=== PATIENT | male | born 1980 | race African-American/Black ===

== ENCOUNTER 2023-02-22 12:43 | Inpatient (IN) | payer OTHER ==
[2023-02-22 14:17] VITALS: BMI 33.3
[2023-02-22] MEDS ORDERED: guaiFENesin 600 MG TABLET.ER (FP) PO PRN (14:51)
[2023-02-22] MEDS ORDERED: BENZOCAINE/MENTHOL (CHLORASEPTIC ) LOZENGE MM PRN (14:51)
[2023-02-22] MEDS ORDERED: AMMONIUM LACTATE 12% LOTION 225 GM BOTTLE TP PRN (14:51)
[2023-02-22] MEDS ORDERED: MAG HYDROX/AL HYDROX/SIMETH 30 ML UNIT-DOSE CUP PO PRN (14:51)
[2023-02-22] MEDS ORDERED: POLYETHYLENE GLYCOL (HEALTHYLAX) 3350 17 GM PACKET PO PRN (14:51)
[2023-02-22] MEDS ORDERED: IBUPROFEN 400 MG TABLET (FP) PO PRN (14:51)
[2023-02-22] MEDS ORDERED: LOPERAMIDE HCL 2 MG CAPSULE PO PRN (14:51)
[2023-02-22] MEDS ORDERED: COLLOIDAL OATMEAL 1 BAR EACH TP PRN (14:51)
[2023-02-22] MEDS ORDERED: IBUPROFEN 600 MG TABLET (FP) PO PRN (14:51)
[2023-02-22] MEDS ORDERED: BENZONATATE 200 MG CAPSULE PO PRN (14:51)
[2023-02-22] MEDS ORDERED: MAGNESIUM HYDROX 2400MG/30ML ORAL SUSPENSION 30 ML CUP PO PRN (14:51)
[2023-02-22] MEDS ORDERED: NALOXONE HCL 0.4 MG/ML VIAL IM PRN (14:51)
[2023-02-22] MEDS ORDERED: NALOXONE HCL (KLOXXADO) 8 MG SPRAY NS PRN (14:51)
[2023-02-22] MEDS ORDERED: ACETAMINOPHEN 325 MG TABLET (FP) PO PRN (14:51)
[2023-02-22] MEDS ORDERED: INSULIN (NOVOLOG) ASPART 100 UNITS/ML 10ML VIAL SQ ONE (16:24)
[2023-02-22] MEDS: INSULIN SLIDING SCALE (NOVOLOG) 1 VIAL SQ SCH (16:33)
[2023-02-22] MEDS ORDERED: glipiZIDE 5 MG TABLET (FP) ONE (17:08)
[2023-02-22] MEDS: metFORMIN HCL 500 MG TABLET (FP) PO SCH (17:13)
[2023-02-22] MEDS: glipiZIDE 10 MG TABLET (FP) PO SCH (17:14)
[2023-02-22] MEDS: PRENATAL VITAMINS W/ FOLIC ACID TABLET (FP) PO SCH (17:25)
[2023-02-22] MEDS: THIAMINE HCL 100 MG TABLET (FP) PO SCH (21:31)
[2023-02-22] MEDS: MELATONIN 5 MG TABLETS PO SCH (21:31)
[2023-02-22] MEDS: INSULIN (LEVEMIR) 100 UNITS/ML UNITS SQ SCH (21:36)
[2023-02-23] MEDS ORDERED: glipiZIDE 5 MG TABLET (FP) ONE ×2 (04:08→16:40)
[2023-02-23] MEDS: metFORMIN HCL 500 MG TABLET (FP) PO SCH ×2 (07:15→16:44)
[2023-02-23] MEDS: glipiZIDE 10 MG TABLET (FP) PO SCH ×2 (07:16→16:43)
[2023-02-23] MEDS: INSULIN SLIDING SCALE (NOVOLOG) 1 VIAL SQ SCH ×3 (07:17→16:44)
[2023-02-23] MEDS: PRENATAL VITAMINS W/ FOLIC ACID TABLET (FP) PO SCH (09:47)
[2023-02-23 11:10] LABS: HEMATOCRIT 38.9 % (35.4-49); MCH 27.1 pg (25.7-33.7); MCHC 33.3 g/dl (32.0-35.9); MEAN CELL VOLUME 81.5 fl (80-96); MEAN PLT VOLUME 7.4 fl (7.5-11.1); PLATELET COUNT 328 10^3/uL (134-434); RBC 4.77 M/mm3 (4.00-5.60); RDW 13.6 % (11.9-15.9); WHITE BLOOD COUNT 5.7 K/mm3 (4.0-10.0)
[2023-02-23 11:17] LABS: POTASSIUM 3.6 mmol/L (3.5-5.1)
[2023-02-23 11:20] LABS: CALCIUM 8.7 mg/dL (8.5-10.1)
[2023-02-23 11:24] LABS: CREATININE 0.9 mg/dL (0.55-1.3)
[2023-02-23 11:26] LABS: BILIRUBIN,TOTAL 0.4 mg/dL (0.2-1); TOT PROT 5.7 g/dl (6.4-8.2)
[2023-02-23] MEDS ORDERED: INSULIN (NOVOLOG) ASPART 100 UNITS/ML 10ML VIAL ONE (12:02)
[2023-02-23] MEDS: INSULIN (LEVEMIR) 100 UNITS/ML UNITS SQ SCH (21:35)
[2023-02-23] MEDS: THIAMINE HCL 100 MG TABLET (FP) PO SCH (21:36)
[2023-02-23] MEDS: MELATONIN 5 MG TABLETS PO SCH (21:36)
[2023-02-24] MEDS ORDERED: glipiZIDE 5 MG TABLET (FP) ONE ×2 (03:51→17:06)
[2023-02-24] MEDS: glipiZIDE 10 MG TABLET (FP) PO SCH ×2 (06:25→17:09)
[2023-02-24] MEDS: metFORMIN HCL 500 MG TABLET (FP) PO SCH ×2 (06:25→17:07)
[2023-02-24] MEDS: INSULIN SLIDING SCALE (NOVOLOG) 1 VIAL SQ SCH ×3 (08:29→17:09)
[2023-02-24] MEDS: PRENATAL VITAMINS W/ FOLIC ACID TABLET (FP) PO SCH (10:29)
[2023-02-24 21:39] LABS: URINE APPEARANCE CLEAR; URINE BILIRUBIN NEGATIVE (NEGATIVE); URINE COLOR YELLOW; URINE GLUCOSE (UA) 3+ (NEGATIVE); URINE KETONE NEGATIVE (NEGATIVE); URINE LEUK ESTERASE NEGATIVE (NEGATIVE); URINE NITRITE NEGATIVE (NEGATIVE); URINE PROTEIN NEGATIVE (NEGATIVE); URINE UROBILINOGEN 0.2 mg/dL (0.2-1.0)
[2023-02-24] MEDS: THIAMINE HCL 100 MG TABLET (FP) PO SCH (22:11)
[2023-02-24] MEDS: MELATONIN 5 MG TABLETS PO SCH (22:11)
[2023-02-24] MEDS: INSULIN (LEVEMIR) 100 UNITS/ML UNITS SQ SCH (22:14)
[2023-02-25] MEDS: metFORMIN HCL 500 MG TABLET (FP) PO SCH ×2 (06:51→17:05)
[2023-02-25] MEDS ORDERED: glipiZIDE 5 MG TABLET (FP) ONE (08:34)
[2023-02-25] MEDS: INSULIN SLIDING SCALE (NOVOLOG) 1 VIAL SQ SCH ×3 (08:39→17:06)
[2023-02-25] MEDS: glipiZIDE 10 MG TABLET (FP) PO SCH ×2 (08:39→17:05)
[2023-02-25] MEDS: PRENATAL VITAMINS W/ FOLIC ACID TABLET (FP) PO SCH (09:59)
[2023-02-25] MEDS: MELATONIN 5 MG TABLETS PO SCH (21:43)
[2023-02-25] MEDS: THIAMINE HCL 100 MG TABLET (FP) PO SCH (21:43)
[2023-02-25] MEDS: INSULIN (LEVEMIR) 100 UNITS/ML UNITS SQ SCH (21:44)
[2023-02-26] MEDS: glipiZIDE 10 MG TABLET (FP) PO SCH ×2 (06:48→17:12)
[2023-02-26] MEDS: metFORMIN HCL 500 MG TABLET (FP) PO SCH ×2 (06:48→17:09)
[2023-02-26] MEDS: INSULIN SLIDING SCALE (NOVOLOG) 1 VIAL SQ SCH ×3 (08:09→17:09)
[2023-02-26] MEDS: PRENATAL VITAMINS W/ FOLIC ACID TABLET (FP) PO SCH (10:17)
[2023-02-26] MEDS ORDERED: glipiZIDE 5 MG TABLET (FP) ONE (16:56)
[2023-02-26] MEDS ORDERED: INSULIN (NOVOLOG) ASPART 100 UNITS/ML 10ML VIAL ONE (16:56)
[2023-02-26] MEDS: THIAMINE HCL 100 MG TABLET (FP) PO SCH (21:25)
[2023-02-26] MEDS: MELATONIN 5 MG TABLETS PO SCH (21:25)
[2023-02-26] MEDS: INSULIN (LEVEMIR) 100 UNITS/ML UNITS SQ SCH (21:26)
[2023-02-27] MEDS ORDERED: glipiZIDE 5 MG TABLET (FP) ONE ×2 (05:29→16:23)
[2023-02-27] MEDS: metFORMIN HCL 500 MG TABLET (FP) PO SCH ×2 (07:05→16:33)
[2023-02-27] MEDS: glipiZIDE 10 MG TABLET (FP) PO SCH ×2 (07:06→16:33)
[2023-02-27] MEDS: INSULIN SLIDING SCALE (NOVOLOG) 1 VIAL SQ SCH ×3 (07:11→17:05)
[2023-02-27] MEDS ORDERED: INSULIN (NOVOLOG) ASPART 100 UNITS/ML 10ML VIAL ONE ×2 (07:38→11:55)
[2023-02-27] MEDS: PRENATAL VITAMINS W/ FOLIC ACID TABLET (FP) PO SCH (10:07)
[2023-02-27] MEDS: THIAMINE HCL 100 MG TABLET (FP) PO SCH (21:31)
[2023-02-27] MEDS: MELATONIN 5 MG TABLETS PO SCH (21:31)
[2023-02-27] MEDS: INSULIN (LEVEMIR) 100 UNITS/ML UNITS SQ SCH (21:31)
[2023-02-28] MEDS ORDERED: glipiZIDE 5 MG TABLET (FP) ONE ×2 (04:35→16:38)
[2023-02-28] MEDS: metFORMIN HCL 500 MG TABLET (FP) PO SCH ×2 (06:41→16:59)
[2023-02-28] MEDS: glipiZIDE 10 MG TABLET (FP) PO SCH ×2 (06:42→16:59)
[2023-02-28] MEDS: INSULIN SLIDING SCALE (NOVOLOG) 1 VIAL SQ SCH ×3 (06:42→16:58)
[2023-02-28] MEDS: PRENATAL VITAMINS W/ FOLIC ACID TABLET (FP) PO SCH (10:14)
[2023-02-28] MEDS: LISINOPRIL 10 MG TABLET PO SCH (11:04)
[2023-02-28] MEDS ORDERED: INSULIN (LEVEMIR) 100 UNITS/ML UNITS SQ ONE (20:13)
[2023-02-28] MEDS: MELATONIN 5 MG TABLETS PO SCH (21:47)
[2023-02-28] MEDS: THIAMINE HCL 100 MG TABLET (FP) PO SCH (21:47)
[2023-02-28] MEDS: INSULIN (LEVEMIR) 100 UNITS/ML UNITS SQ SCH (21:48)
[2023-03-01] MEDS ORDERED: glipiZIDE 5 MG TABLET (FP) ONE ×2 (03:49→16:32)
[2023-03-01] MEDS: metFORMIN HCL 500 MG TABLET (FP) PO SCH ×2 (06:52→16:57)
[2023-03-01] MEDS: glipiZIDE 10 MG TABLET (FP) PO SCH ×2 (06:52→16:57)
[2023-03-01] MEDS: INSULIN SLIDING SCALE (NOVOLOG) 1 VIAL SQ SCH ×3 (07:57→16:57)
[2023-03-01] MEDS: PRENATAL VITAMINS W/ FOLIC ACID TABLET (FP) PO SCH (09:22)
[2023-03-01] MEDS: LISINOPRIL 10 MG TABLET PO SCH (09:23)
[2023-03-01] MEDS ORDERED: INSULIN (NOVOLOG) ASPART 100 UNITS/ML 10ML VIAL ONE (12:06)
[2023-03-01] MEDS: MELATONIN 5 MG TABLETS PO SCH (21:21)
[2023-03-01] MEDS: THIAMINE HCL 100 MG TABLET (FP) PO SCH (21:21)
[2023-03-01] MEDS: INSULIN (LEVEMIR) 100 UNITS/ML UNITS SQ SCH (21:24)
[2023-03-02] MEDS ORDERED: glipiZIDE 5 MG TABLET (FP) ONE ×2 (03:08→16:36)
[2023-03-02] MEDS: metFORMIN HCL 500 MG TABLET (FP) PO SCH ×2 (06:59→16:47)
[2023-03-02] MEDS: glipiZIDE 10 MG TABLET (FP) PO SCH ×2 (06:59→16:48)
[2023-03-02] MEDS: INSULIN SLIDING SCALE (NOVOLOG) 1 VIAL SQ SCH ×3 (07:00→16:48)
[2023-03-02] MEDS: LISINOPRIL 10 MG TABLET PO SCH (10:05)
[2023-03-02] MEDS: PRENATAL VITAMINS W/ FOLIC ACID TABLET (FP) PO SCH (10:06)
[2023-03-02] MEDS: THIAMINE HCL 100 MG TABLET (FP) PO SCH (21:14)
[2023-03-02] MEDS: MELATONIN 5 MG TABLETS PO SCH (21:14)
[2023-03-02] MEDS: INSULIN (LEVEMIR) 100 UNITS/ML UNITS SQ SCH (21:15)
[2023-03-03] MEDS ORDERED: INSULIN (NOVOLOG) ASPART 100 UNITS/ML 10ML VIAL ONE (05:14)
[2023-03-03] MEDS ORDERED: glipiZIDE 5 MG TABLET (FP) ONE (05:15)
[2023-03-03] MEDS: INSULIN SLIDING SCALE (NOVOLOG) 1 VIAL SQ SCH ×3 (07:47→16:49)
[2023-03-03] MEDS: metFORMIN HCL 500 MG TABLET (FP) PO SCH ×2 (07:47→16:48)
[2023-03-03] MEDS: glipiZIDE 10 MG TABLET (FP) PO SCH ×2 (07:50→16:49)
[2023-03-03] MEDS: LISINOPRIL 10 MG TABLET PO SCH (09:49)
[2023-03-03] MEDS: PRENATAL VITAMINS W/ FOLIC ACID TABLET (FP) PO SCH (09:49)
[2023-03-03] MEDS: INSULIN (LEVEMIR) 100 UNITS/ML UNITS SQ SCH (21:13)
[2023-03-03] MEDS: THIAMINE HCL 100 MG TABLET (FP) PO SCH (21:13)
[2023-03-03] MEDS: MELATONIN 5 MG TABLETS PO SCH (21:13)
[2023-03-04] MEDS: metFORMIN HCL 500 MG TABLET (FP) PO SCH ×2 (07:12→16:57)
[2023-03-04] MEDS: glipiZIDE 10 MG TABLET (FP) PO SCH ×2 (07:13→16:57)
[2023-03-04] MEDS: INSULIN SLIDING SCALE (NOVOLOG) 1 VIAL SQ SCH ×3 (07:14→17:00)
[2023-03-04] MEDS: LISINOPRIL 10 MG TABLET PO SCH (09:48)
[2023-03-04] MEDS: PRENATAL VITAMINS W/ FOLIC ACID TABLET (FP) PO SCH (09:48)
[2023-03-04] MEDS: MELATONIN 5 MG TABLETS PO SCH (21:18)
[2023-03-04] MEDS: THIAMINE HCL 100 MG TABLET (FP) PO SCH (21:18)
[2023-03-04] MEDS: INSULIN (LEVEMIR) 100 UNITS/ML UNITS SQ SCH (21:19)
[2023-03-05] MEDS: metFORMIN HCL 500 MG TABLET (FP) PO SCH ×2 (06:32→16:54)
[2023-03-05] MEDS: glipiZIDE 10 MG TABLET (FP) PO SCH ×2 (06:32→16:54)
[2023-03-05] MEDS: INSULIN SLIDING SCALE (NOVOLOG) 1 VIAL SQ SCH ×3 (08:34→16:58)
[2023-03-05] MEDS: PRENATAL VITAMINS W/ FOLIC ACID TABLET (FP) PO SCH (09:59)
[2023-03-05] MEDS: LISINOPRIL 10 MG TABLET PO SCH (10:00)
[2023-03-05 15:28] LABS: HIV INTERPRETATION NEGATIVE (NEGATIVE)
[2023-03-05] MEDS ORDERED: glipiZIDE 5 MG TABLET (FP) ONE (16:54)
[2023-03-05] MEDS ORDERED: INSULIN (NOVOLOG) ASPART 100 UNITS/ML 10ML VIAL ONE (16:56)
[2023-03-05] MEDS: INSULIN (LEVEMIR) 100 UNITS/ML UNITS SQ SCH (21:19)
[2023-03-05] MEDS: THIAMINE HCL 100 MG TABLET (FP) PO SCH (21:19)
[2023-03-05] MEDS: MELATONIN 5 MG TABLETS PO SCH (21:19)
[2023-03-06] MEDS ORDERED: glipiZIDE 5 MG TABLET (FP) ONE ×2 (05:43→16:41)
[2023-03-06] MEDS: metFORMIN HCL 500 MG TABLET (FP) PO SCH ×2 (06:59→16:41)
[2023-03-06] MEDS: glipiZIDE 10 MG TABLET (FP) PO SCH ×2 (07:00→16:42)
[2023-03-06] MEDS: INSULIN SLIDING SCALE (NOVOLOG) 1 VIAL SQ SCH ×3 (07:00→16:42)
[2023-03-06] MEDS: LISINOPRIL 10 MG TABLET PO SCH (09:54)
[2023-03-06] MEDS: PRENATAL VITAMINS W/ FOLIC ACID TABLET (FP) PO SCH (09:54)
[2023-03-06] MEDS ORDERED: INSULIN (NOVOLOG) ASPART 100 UNITS/ML 10ML VIAL ONE (16:40)
[2023-03-06] MEDS: MELATONIN 5 MG TABLETS PO SCH (21:17)
[2023-03-06] MEDS: INSULIN (LEVEMIR) 100 UNITS/ML UNITS SQ SCH (21:17)
[2023-03-06] MEDS: THIAMINE HCL 100 MG TABLET (FP) PO SCH (21:17)
[2023-03-07] MEDS ORDERED: glipiZIDE 5 MG TABLET (FP) ONE ×2 (03:35→16:30)
[2023-03-07] MEDS: metFORMIN HCL 500 MG TABLET (FP) PO SCH ×2 (06:51→16:49)
[2023-03-07] MEDS: glipiZIDE 10 MG TABLET (FP) PO SCH ×2 (06:51→16:48)
[2023-03-07] MEDS: INSULIN SLIDING SCALE (NOVOLOG) 1 VIAL SQ SCH ×3 (06:52→16:49)
[2023-03-07] MEDS: PRENATAL VITAMINS W/ FOLIC ACID TABLET (FP) PO SCH (10:01)
[2023-03-07] MEDS: LISINOPRIL 10 MG TABLET PO SCH (10:02)
[2023-03-07] MEDS ORDERED: INSULIN (NOVOLOG) ASPART 100 UNITS/ML 10ML VIAL ONE (11:08)
[2023-03-07] MEDS: hydrOXYzine PAMOATE 25 MG CAPSULE (FP) PO PRN (15:54)
[2023-03-07] MEDS: MELATONIN 5 MG TABLETS PO SCH (21:16)
[2023-03-07] MEDS: INSULIN (LEVEMIR) 100 UNITS/ML UNITS SQ SCH (21:16)
[2023-03-07] MEDS: THIAMINE HCL 100 MG TABLET (FP) PO SCH (21:16)
[2023-03-08] MEDS: glipiZIDE 10 MG TABLET (FP) PO SCH ×2 (06:55→16:37)
[2023-03-08] MEDS: hydrOXYzine PAMOATE 25 MG CAPSULE (FP) PO PRN (06:55)
[2023-03-08] MEDS: metFORMIN HCL 500 MG TABLET (FP) PO SCH ×2 (06:55→16:37)
[2023-03-08] MEDS: INSULIN SLIDING SCALE (NOVOLOG) 1 VIAL SQ SCH ×3 (08:23→16:51)
[2023-03-08] MEDS: PRENATAL VITAMINS W/ FOLIC ACID TABLET (FP) PO SCH (10:15)
[2023-03-08] MEDS: HYDROCHLOROTHIAZIDE 12.5 MG CAPSULE (FP) PO SCH (10:16)
[2023-03-08] MEDS: LISINOPRIL 20 MG TABLET PO SCH (10:16)
[2023-03-08] MEDS ORDERED: INSULIN (NOVOLOG) ASPART 100 UNITS/ML 10ML VIAL ONE ×2 (11:00→16:21)
[2023-03-08] MEDS ORDERED: glipiZIDE 5 MG TABLET (FP) ONE (16:22)
[2023-03-08] MEDS: INSULIN (LEVEMIR) 100 UNITS/ML UNITS SQ SCH (21:01)
[2023-03-08] MEDS: THIAMINE HCL 100 MG TABLET (FP) PO SCH (21:01)
[2023-03-08] MEDS: MELATONIN 5 MG TABLETS PO SCH (21:01)
[2023-03-09] MEDS ORDERED: glipiZIDE 5 MG TABLET (FP) ONE ×2 (03:59→16:42)
[2023-03-09] MEDS ORDERED: INSULIN (NOVOLOG) ASPART 100 UNITS/ML 10ML VIAL ONE ×2 (06:52→10:59)
[2023-03-09] MEDS: metFORMIN HCL 500 MG TABLET (FP) PO SCH ×2 (06:53→16:42)
[2023-03-09] MEDS: INSULIN SLIDING SCALE (NOVOLOG) 1 VIAL SQ SCH ×3 (06:53→16:45)
[2023-03-09] MEDS: glipiZIDE 10 MG TABLET (FP) PO SCH ×2 (06:54→16:43)
[2023-03-09] MEDS: HYDROCHLOROTHIAZIDE 12.5 MG CAPSULE (FP) PO SCH (09:55)
[2023-03-09] MEDS: PRENATAL VITAMINS W/ FOLIC ACID TABLET (FP) PO SCH (09:55)
[2023-03-09] MEDS: LISINOPRIL 20 MG TABLET PO SCH (09:55)
[2023-03-09] MEDS: MELATONIN 5 MG TABLETS PO SCH (21:27)
[2023-03-09] MEDS: THIAMINE HCL 100 MG TABLET (FP) PO SCH (21:27)
[2023-03-09] MEDS: INSULIN (LEVEMIR) 100 UNITS/ML UNITS SQ SCH (21:31)
[2023-03-10] MEDS ORDERED: glipiZIDE 5 MG TABLET (FP) ONE (05:57)
[2023-03-10] MEDS: metFORMIN HCL 500 MG TABLET (FP) PO SCH ×2 (06:54→16:43)
[2023-03-10] MEDS: glipiZIDE 10 MG TABLET (FP) PO SCH ×2 (06:54→16:44)
[2023-03-10] MEDS: INSULIN SLIDING SCALE (NOVOLOG) 1 VIAL SQ SCH ×3 (06:55→16:45)
[2023-03-10] MEDS ORDERED: INSULIN (NOVOLOG) ASPART 100 UNITS/ML 10ML VIAL ONE ×3 (06:58→16:43)
[2023-03-10] MEDS: LISINOPRIL 20 MG TABLET PO SCH (10:03)
[2023-03-10] MEDS: PRENATAL VITAMINS W/ FOLIC ACID TABLET (FP) PO SCH (10:03)
[2023-03-10] MEDS: HYDROCHLOROTHIAZIDE 12.5 MG CAPSULE (FP) PO SCH (10:03)
[2023-03-10] MEDS: MELATONIN 5 MG TABLETS PO SCH (21:25)
[2023-03-10] MEDS: THIAMINE HCL 100 MG TABLET (FP) PO SCH (21:25)
[2023-03-10] MEDS: INSULIN (LEVEMIR) 100 UNITS/ML UNITS SQ SCH (21:26)
[2023-03-11] MEDS ORDERED: INSULIN (NOVOLOG) ASPART 100 UNITS/ML 10ML VIAL ONE (02:55)
[2023-03-11] MEDS: glipiZIDE 10 MG TABLET (FP) PO SCH ×2 (06:51→16:46)
[2023-03-11] MEDS: metFORMIN HCL 500 MG TABLET (FP) PO SCH ×2 (06:51→16:46)
[2023-03-11] MEDS: INSULIN SLIDING SCALE (NOVOLOG) 1 VIAL SQ SCH ×3 (08:25→16:44)
[2023-03-11] MEDS: HYDROCHLOROTHIAZIDE 12.5 MG CAPSULE (FP) PO SCH (10:03)
[2023-03-11] MEDS: LISINOPRIL 20 MG TABLET PO SCH (10:03)
[2023-03-11] MEDS: PRENATAL VITAMINS W/ FOLIC ACID TABLET (FP) PO SCH (10:03)
[2023-03-11] MEDS: MELATONIN 5 MG TABLETS PO SCH (21:53)
[2023-03-11] MEDS: THIAMINE HCL 100 MG TABLET (FP) PO SCH (21:53)
[2023-03-11] MEDS: INSULIN (LEVEMIR) 100 UNITS/ML UNITS SQ SCH (21:54)
[2023-03-12] MEDS: metFORMIN HCL 500 MG TABLET (FP) PO SCH ×2 (06:42→17:21)
[2023-03-12] MEDS: glipiZIDE 10 MG TABLET (FP) PO SCH ×2 (06:42→17:22)
[2023-03-12] MEDS: INSULIN SLIDING SCALE (NOVOLOG) 1 VIAL SQ SCH ×3 (06:44→16:58)
[2023-03-12] MEDS ORDERED: INSULIN (NOVOLOG) ASPART 100 UNITS/ML 10ML VIAL ONE ×2 (06:44→08:05)
[2023-03-12] MEDS: PRENATAL VITAMINS W/ FOLIC ACID TABLET (FP) PO SCH (09:56)
[2023-03-12] MEDS: HYDROCHLOROTHIAZIDE 12.5 MG CAPSULE (FP) PO SCH (09:56)
[2023-03-12] MEDS: LISINOPRIL 20 MG TABLET PO SCH (09:57)
[2023-03-12] MEDS ORDERED: glipiZIDE 5 MG TABLET (FP) ONE (17:20)
[2023-03-12] MEDS: THIAMINE HCL 100 MG TABLET (FP) PO SCH (21:37)
[2023-03-12] MEDS: MELATONIN 5 MG TABLETS PO SCH (21:37)
[2023-03-12] MEDS: INSULIN (LEVEMIR) 100 UNITS/ML UNITS SQ SCH (21:42)
[2023-03-13] MEDS ORDERED: glipiZIDE 5 MG TABLET (FP) ONE ×2 (03:39→16:22)
[2023-03-13] MEDS: metFORMIN HCL 500 MG TABLET (FP) PO SCH ×2 (06:52→16:44)
[2023-03-13] MEDS: glipiZIDE 10 MG TABLET (FP) PO SCH ×2 (06:53→16:45)
[2023-03-13] MEDS: INSULIN SLIDING SCALE (NOVOLOG) 1 VIAL SQ SCH ×3 (06:55→16:45)
[2023-03-13] MEDS ORDERED: INSULIN (NOVOLOG) ASPART 100 UNITS/ML 10ML VIAL ONE ×2 (06:55→11:03)
[2023-03-13] MEDS: HYDROCHLOROTHIAZIDE 12.5 MG CAPSULE (FP) PO SCH (09:53)
[2023-03-13] MEDS: PRENATAL VITAMINS W/ FOLIC ACID TABLET (FP) PO SCH (09:53)
[2023-03-13] MEDS: LISINOPRIL 20 MG TABLET PO SCH (09:53)
[2023-03-13] MEDS: MELATONIN 5 MG TABLETS PO SCH (21:21)
[2023-03-13] MEDS: INSULIN (LEVEMIR) 100 UNITS/ML UNITS SQ SCH (21:21)
[2023-03-13] MEDS: THIAMINE HCL 100 MG TABLET (FP) PO SCH (21:22)
[2023-03-14] MEDS: glipiZIDE 10 MG TABLET (FP) PO SCH ×2 (06:38→16:31)
[2023-03-14] MEDS: metFORMIN HCL 500 MG TABLET (FP) PO SCH ×2 (06:38→16:31)
[2023-03-14] MEDS: INSULIN SLIDING SCALE (NOVOLOG) 1 VIAL SQ SCH ×3 (07:27→16:33)
[2023-03-14] MEDS: HYDROCHLOROTHIAZIDE 12.5 MG CAPSULE (FP) PO SCH (09:43)
[2023-03-14] MEDS: PRENATAL VITAMINS W/ FOLIC ACID TABLET (FP) PO SCH (09:43)
[2023-03-14] MEDS: LISINOPRIL 20 MG TABLET PO SCH (09:43)
[2023-03-14] MEDS: MELATONIN 5 MG TABLETS PO SCH (21:20)
[2023-03-14] MEDS: THIAMINE HCL 100 MG TABLET (FP) PO SCH (21:20)
[2023-03-14] MEDS: INSULIN (LEVEMIR) 100 UNITS/ML UNITS SQ SCH (21:21)
[2023-03-15] MEDS ORDERED: glipiZIDE 5 MG TABLET (FP) ONE ×2 (04:21→16:25)
[2023-03-15] MEDS: metFORMIN HCL 500 MG TABLET (FP) PO SCH ×2 (06:55→16:27)
[2023-03-15] MEDS: glipiZIDE 10 MG TABLET (FP) PO SCH ×2 (06:55→16:28)
[2023-03-15] MEDS: INSULIN SLIDING SCALE (NOVOLOG) 1 VIAL SQ SCH ×3 (06:56→16:28)
[2023-03-15] MEDS: LISINOPRIL 20 MG TABLET PO SCH (10:18)
[2023-03-15] MEDS: PRENATAL VITAMINS W/ FOLIC ACID TABLET (FP) PO SCH (10:18)
[2023-03-15] MEDS: HYDROCHLOROTHIAZIDE 12.5 MG CAPSULE (FP) PO SCH (10:18)
[2023-03-15] MEDS: THIAMINE HCL 100 MG TABLET (FP) PO SCH (21:25)
[2023-03-15] MEDS: MELATONIN 5 MG TABLETS PO SCH (21:25)
[2023-03-15] MEDS: INSULIN (LEVEMIR) 100 UNITS/ML UNITS SQ SCH (21:25)
[2023-03-16] MEDS ORDERED: glipiZIDE 5 MG TABLET (FP) ONE ×2 (03:44→16:39)
[2023-03-16] MEDS: metFORMIN HCL 500 MG TABLET (FP) PO SCH ×2 (06:57→16:44)
[2023-03-16] MEDS: glipiZIDE 10 MG TABLET (FP) PO SCH ×2 (06:57→16:45)
[2023-03-16] MEDS: INSULIN SLIDING SCALE (NOVOLOG) 1 VIAL SQ SCH ×3 (06:58→16:47)
[2023-03-16] MEDS ORDERED: INSULIN (NOVOLOG) ASPART 100 UNITS/ML 10ML VIAL ONE (07:25)
[2023-03-16] MEDS: PRENATAL VITAMINS W/ FOLIC ACID TABLET (FP) PO SCH (10:11)
[2023-03-16] MEDS: HYDROCHLOROTHIAZIDE 12.5 MG CAPSULE (FP) PO SCH (10:11)
[2023-03-16] MEDS: LISINOPRIL 20 MG TABLET PO SCH (10:11)
[2023-03-16] MEDS: INSULIN (LEVEMIR) 100 UNITS/ML UNITS SQ SCH (21:09)
[2023-03-16] MEDS: MELATONIN 5 MG TABLETS PO SCH (21:10)
[2023-03-16] MEDS: THIAMINE HCL 100 MG TABLET (FP) PO SCH (21:10)
[2023-03-17] MEDS ORDERED: glipiZIDE 5 MG TABLET (FP) ONE (03:35)
[2023-03-17] MEDS: INSULIN SLIDING SCALE (NOVOLOG) 1 VIAL SQ SCH ×3 (06:52→16:29)
[2023-03-17] MEDS: metFORMIN HCL 500 MG TABLET (FP) PO SCH ×2 (06:53→17:00)
[2023-03-17] MEDS: glipiZIDE 10 MG TABLET (FP) PO SCH ×2 (06:53→17:00)
[2023-03-17] MEDS: PRENATAL VITAMINS W/ FOLIC ACID TABLET (FP) PO SCH (09:54)
[2023-03-17] MEDS: HYDROCHLOROTHIAZIDE 12.5 MG CAPSULE (FP) PO SCH (09:55)
[2023-03-17] MEDS: LISINOPRIL 20 MG TABLET PO SCH (09:55)
[2023-03-17] MEDS: MELATONIN 5 MG TABLETS PO SCH (21:43)
[2023-03-17] MEDS: INSULIN (LEVEMIR) 100 UNITS/ML UNITS SQ SCH (21:43)
[2023-03-17] MEDS: THIAMINE HCL 100 MG TABLET (FP) PO SCH (21:43)
[2023-03-18] MEDS: metFORMIN HCL 500 MG TABLET (FP) PO SCH ×2 (06:41→16:29)
[2023-03-18] MEDS: INSULIN SLIDING SCALE (NOVOLOG) 1 VIAL SQ SCH ×3 (06:41→16:26)
[2023-03-18] MEDS: glipiZIDE 10 MG TABLET (FP) PO SCH ×2 (06:42→16:29)
[2023-03-18] MEDS: HYDROCHLOROTHIAZIDE 12.5 MG CAPSULE (FP) PO SCH (09:42)
[2023-03-18] MEDS: PRENATAL VITAMINS W/ FOLIC ACID TABLET (FP) PO SCH (09:42)
[2023-03-18] MEDS: LISINOPRIL 20 MG TABLET PO SCH (09:43)
[2023-03-18] MEDS: THIAMINE HCL 100 MG TABLET (FP) PO SCH (21:16)
[2023-03-18] MEDS: MELATONIN 5 MG TABLETS PO SCH (21:16)
[2023-03-18] MEDS: INSULIN (LEVEMIR) 100 UNITS/ML UNITS SQ SCH (21:16)
[2023-03-19] MEDS: metFORMIN HCL 500 MG TABLET (FP) PO SCH ×2 (07:00→17:05)
[2023-03-19] MEDS: INSULIN SLIDING SCALE (NOVOLOG) 1 VIAL SQ SCH ×3 (07:00→17:08)
[2023-03-19] MEDS: glipiZIDE 10 MG TABLET (FP) PO SCH ×2 (07:00→17:11)
[2023-03-19] MEDS: PRENATAL VITAMINS W/ FOLIC ACID TABLET (FP) PO SCH (09:38)
[2023-03-19] MEDS: HYDROCHLOROTHIAZIDE 12.5 MG CAPSULE (FP) PO SCH (09:38)
[2023-03-19] MEDS: LISINOPRIL 20 MG TABLET PO SCH (09:38)
[2023-03-19] MEDS ORDERED: glipiZIDE 5 MG TABLET (FP) ONE (17:04)
[2023-03-19] MEDS ORDERED: INSULIN (NOVOLOG) ASPART 100 UNITS/ML 10ML VIAL ONE (17:04)
[2023-03-19] MEDS: MELATONIN 5 MG TABLETS PO SCH (21:21)
[2023-03-19] MEDS: THIAMINE HCL 100 MG TABLET (FP) PO SCH (21:21)
[2023-03-19] MEDS: INSULIN (LEVEMIR) 100 UNITS/ML UNITS SQ SCH (21:23)
[2023-03-20] MEDS ORDERED: glipiZIDE 5 MG TABLET (FP) ONE (04:29)
[2023-03-20] MEDS: glipiZIDE 10 MG TABLET (FP) PO SCH ×2 (06:34→16:41)
[2023-03-20] MEDS: metFORMIN HCL 500 MG TABLET (FP) PO SCH ×2 (06:34→16:41)
[2023-03-20] MEDS: INSULIN SLIDING SCALE (NOVOLOG) 1 VIAL SQ SCH ×3 (06:35→16:42)
[2023-03-20] MEDS: PRENATAL VITAMINS W/ FOLIC ACID TABLET (FP) PO SCH (09:48)
[2023-03-20] MEDS: HYDROCHLOROTHIAZIDE 12.5 MG CAPSULE (FP) PO SCH (09:49)
[2023-03-20] MEDS: LISINOPRIL 20 MG TABLET PO SCH (09:49)
[2023-03-20] MEDS ORDERED: INSULIN (NOVOLOG) ASPART 100 UNITS/ML 10ML VIAL ONE (11:49)
[2023-03-20] MEDS: INSULIN (LEVEMIR) 100 UNITS/ML UNITS SQ SCH (21:14)
[2023-03-20] MEDS: MELATONIN 5 MG TABLETS PO SCH (21:14)
[2023-03-20] MEDS: THIAMINE HCL 100 MG TABLET (FP) PO SCH (21:14)
[2023-03-21] MEDS ORDERED: glipiZIDE 5 MG TABLET (FP) ONE ×2 (02:58→16:21)
[2023-03-21] MEDS ORDERED: INSULIN (NOVOLOG) ASPART 100 UNITS/ML 10ML VIAL ONE ×2 (06:42→12:17)
[2023-03-21] MEDS: metFORMIN HCL 500 MG TABLET (FP) PO SCH ×2 (06:43→16:26)
[2023-03-21] MEDS: glipiZIDE 10 MG TABLET (FP) PO SCH ×2 (06:43→16:27)
[2023-03-21] MEDS: INSULIN SLIDING SCALE (NOVOLOG) 1 VIAL SQ SCH ×3 (06:44→17:09)
[2023-03-21] MEDS: LISINOPRIL 20 MG TABLET PO SCH (09:44)
[2023-03-21] MEDS: HYDROCHLOROTHIAZIDE 12.5 MG CAPSULE (FP) PO SCH (09:44)
[2023-03-21] MEDS: PRENATAL VITAMINS W/ FOLIC ACID TABLET (FP) PO SCH (09:44)
[2023-03-21] MEDS: MELATONIN 5 MG TABLETS PO SCH (21:20)
[2023-03-21] MEDS: INSULIN (LEVEMIR) 100 UNITS/ML UNITS SQ SCH (21:20)
[2023-03-21] MEDS: THIAMINE HCL 100 MG TABLET (FP) PO SCH (21:20)
[2023-03-22] MEDS: glipiZIDE 10 MG TABLET (FP) PO SCH (06:59)
[2023-03-22] MEDS: metFORMIN HCL 500 MG TABLET (FP) PO SCH (06:59)
[2023-03-22] MEDS: INSULIN SLIDING SCALE (NOVOLOG) 1 VIAL SQ SCH (06:59)
[2023-03-22] MEDS ORDERED: INSULIN (NOVOLOG) ASPART 100 UNITS/ML 10ML VIAL ONE (07:01)
[2023-03-22 07:05] VITALS: RESP 18; TEMP 97.2
[2023-03-22] MEDS: HYDROCHLOROTHIAZIDE 12.5 MG CAPSULE (FP) PO SCH (10:00)
[2023-03-22] MEDS: PRENATAL VITAMINS W/ FOLIC ACID TABLET (FP) PO SCH (10:00)
[2023-03-22] MEDS: LISINOPRIL 20 MG TABLET PO SCH (10:00)
[2023-03-22 11:02] VITALS: BP 135/83; PULSE 82
== END 2023-03-22 10:04 | disposition other institution (70) | DRG 774 ==
LOC: YASAS 12:43 → Y5N 16:44
PROVIDERS: ADMIT Allergy & Immunology; ATTEND Psychiatry & Neurology Pain Medicine
PROC: HZ42ZZZ Group Counseling for Substance Abuse Treatment, Cognitive-Behavioral (ICD-10-PCS; principal; 2023-02-22)
DX: F14.10 Cocaine abuse, uncomplicated (principal); F17.210 Nicotine dependence, cigarettes, uncomplicated; F43.10 Post-traumatic stress disorder, unspecified; F41.9 Anxiety disorder, unspecified; F32.A Depression, unspecified; I10 Essential (primary) hypertension; E78.5 Hyperlipidemia, unspecified; E11.610 Type 2 diabetes mellitus with diabetic neuropathic arthropathy; Z79.4 Long term (current) use of insulin
CPT/HCPCS: 36415; 71045-TC-FY; 80053; 81003; 82962; 85027; 86780; 87389; 87635; 87811